=== PATIENT | female | born 1980 | race Caucasian/White ===

== ENCOUNTER 2024-01-24 13:37 | Outpatient (AMB) | payer BC, SELFPAY ==
--- NOTE | 2024-01-24 13:17 | MHC.PC.OV ---
Intake Visit Reasons: Establish Care Intake Note: New patient visit Insurance Follow Up Specialist Required: No Allergies No Known Allergies Allergy (Verified 01/24/24 13:24) [facility] Medical History (Updated 01/24/24 @ 13:23 by Gisele Blackwell CMA) Pulmonary embolism Obesity, Class I, BMI 30-34.9 Fibroid uterus Anxiety Anemia Surgical History (Updated 01/24/24 @ 13:23 by Gisele Blackwell CMA) H/O oral surgery Coding
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
[2024-01-24 13:57] VITALS: BP 110/68; PULSE 84; TEMP 36.9; O2SAT 97; BMI 31.9
== END 2024-01-24 14:43 | disposition home or self-care (01) ==
PROVIDERS: PCP Physician Assistant Medical; Visit Provider Physician Assistant Medical
DX: M54.2 Cervicalgia (principal); Z86.711 Personal history of pulmonary embolism; F41.9 Anxiety disorder, unspecified; D68.2 Hereditary deficiency of other clotting factors; M54.9 Dorsalgia, unspecified; E06.3 Autoimmune thyroiditis
CPT/HCPCS: 96127; 99204

== ENCOUNTER 2024-03-31 08:18 | Outpatient (AMB) | payer BC, SELFPAY ==
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
[2024-03-31 08:26] VITALS: BP 96/68; PULSE 83; O2SAT 98; BMI 31.5
== END 2024-03-31 09:07 | disposition home or self-care (01) ==
PROVIDERS: PCP Physician Assistant Medical; Visit Provider Physician Assistant Medical
DX: Z00.00 Encounter for general adult medical examination without abnormal findings (principal); D68.2 Hereditary deficiency of other clotting factors; M54.2 Cervicalgia; F41.9 Anxiety disorder, unspecified

== ENCOUNTER → 2024-03-31 08:18 | Outpatient (BNVA) | payer BC, SELFPAY | PROVIDERS: PCP Physician Assistant Medical; Visit Provider Physician Assistant Medical | DX: Z00.00 Encounter for general adult medical examination without abnormal findings (principal); M54.2 Cervicalgia; F41.9 Anxiety disorder, unspecified; Z79.899 Other long term (current) drug therapy | CPT/HCPCS: 96127 ==

== ENCOUNTER 2024-03-31 09:37 | Outpatient (REF) | payer BC, SELFPAY ==
[2024-03-31 11:16] LABS: Hematocrit 40.6 % (37.0-47.0); Hemoglobin 13.3 g/dl (12.0-16.0); Mean Corpuscular HGB Conc 32.8 g/dl (31.0-35.0); Mean Corpuscular Hemoglobin 30.7 pg (27.0-33.0); Mean Corpuscular Volume 93.8 fL (80.0-98.0); Mean Platelet Volume 9.9 fL (9.4-12.3); Platelet Count 341 X10*3/uL (160-400); Red Blood Count 4.33 X10*6/uL (4.20-5.50); Red Cell Distribution Width 13.4 % (11.0-16.0)
[2024-03-31 12:01] LABS: Alanine Aminotransferase 20 U/L (0-31); Albumin Level 4.1 g/dL (3.5-5.0); Alkaline Phosphatase 55 U/L (39-117); Anion Gap 11 (12-20); Aspartate Amino Transferase 21 U/L (5-31); Bilirubin Total 0.5 mg/dL (0.0-1.0); Blood Urea Nitrogen 8 mg/dL (9-16); Carbon Dioxide 24 mmol/L (22-29); Chloride 107 mmol/L (96-108); Cholesterol 197 mg/dL (<200); Estimated Glomerular Filt Rate > 60; Glucose Random 89 mg/dL (60-115); HDL Cholesterol 52 mg/dL (>40); LDL Cholesterol Calculated 126 mg/dL (<100); Potassium 4.5 mmol/L (3.3-5.1); Sodium 137 mmol/L (135-145); TSH reflex Free T4 0.76 uIU/mL (0.32-4.0); Total Protein 7.8 g/dL (6.5-8.0); Triglycerides 99 mg/dL (<150)
== END 2024-03-31 09:38 | disposition home or self-care (01) ==
LOC: HO.WFDLDS 09:37
PROVIDERS: Visit Provider Physician Assistant Medical
DX: D68.2 Hereditary deficiency of other clotting factors (principal); E66.9 Obesity, unspecified; E06.3 Autoimmune thyroiditis; Z13.6 Encounter for screening for cardiovascular disorders
CPT/HCPCS: 36415; 80053; 80061; 84443; 85027

== ENCOUNTER 2025-05-01 08:39 | Outpatient (AMB) | payer OTHER, SELFPAY ==
--- NOTE | 2025-05-01 08:41 | A.OFFPC_ITS ---
Vital Signs 05/01/25 08:52 Height 5 ft 5 in Weight 198 lb 4 oz BMI 33.0 BP 115/74 Blood Pressure Location Lt brachial Position Sitting Respiration 16 Pulse 86 Pulse Source Pulse Oximeter Temp 97.5 F Temp Source Oral Pulse Oximetry (%) 100 Oxygen Delivery Method Room Air Intake Visit Reasons: Physical / Ale Emery Pt. Intake Note: patient here for Vitaliy PRIEST patient Campaign Specialist Required: No Is last menstrual period known: No Post menopausal: No Patient : No Allergies No Known Allergies Allergy (Verified 05/01/25 09:06) Medication List - Last Reconciled 05/01/25 by Zuri Redd CNP apixaban (Eliquis) 2.5 mg PO BID lorazepam 0.5 mg PO BID PRN Tobacco use date assessed: 05/01/25 Dental Screening Dental Screen Date: 05/01/25 Did you have a dental visit in the last 12 months?: Yes Did you have a dental problem in the last 6 months where you did not have access to dental care?: No Was dental information given to patient?: Patient has dentist HPI HPI Comments History of Present Illness Details 44-year-old female presents for an exten ded physical exam. She admits to taking her medications as prescribed without adverse reactions. She is in follows [facility] C[facility]ner[facility]. 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 History of vaping nicotine , Drinks 1-2 mixed drinks occasionally. Vapes cannabis occasionally - Has been making unhealthy dietary lujan josh.Does not exercise routinely. Reports difficulty falling and staying asleep and attribute her symptoms to scrolling on her phone late at night and psychosocial stressors including work and being a mom Health maintenance - Last eye exam was 7 years ago. She vanessa l follow up with her Ophthalmology for an eye exam - Last dental visit was a few months ago - Last tetanus vaccine was more than 10 years ago; received Tdap vaccine today - Has not been vaccinated for the flu season; declines vaccination - Last pap smear test was a few months a go [facility] [place] lining strap closer. She notes hysterectomy in 09/2019 - Last mammogram 7-8 months ago with [facility]: Normal Specialists - [facility] oncology/hemat ology, lining strap closer [facility] Medical History (Updated 05/01/25 @ 09:26 by Zuri Redd CNP) Routine physical examination Upper back pain Cervicalgia History of pulmonary embolism Factor II deficiency Depression Headache Chula's disease Thyroid disease Palpitations Clot Pulmonary embolism Obesity, Class I, BMI 30-34.9 Fibroid uterus Anxiety Anemia Surgical History H/O oral surgery Family History Father HTN (hypertension) High cholesterol Clotting disorder Maternal Grandmother Lung cancer Sister FH: mental illness Social History Housing: Apartment Alcohol intake: current Patient Tobacco Use Status: Never used Tobacco e-Cigarette/Vaping Use: Never Used Second Hand Smoke Exposure: No service: No Current occupational status: employed 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 1. Little interest or pleasure in doing things: not at all 2. Feeling down, depressed, or hopeless: not at all 3. Trouble falling or staying asleep, or sleeping too much: several days 4. Feeling tired or having little energy: several days 5. Poor appetite or overeating: several days 6. Feeling bad about yourself - or that you are a failure or have let yourself or your family down: not at all 7. Trouble concentrating on things, such as reading the newspaper or watching television: not at all 8. Moving or speaking so slowly that other people could have noticed. Or the opposite - being so fidgety or restless that you have been moving around a lot more than usual: not at all 9. Thoughts that you would be better off or of hurting yourself in some way: not at all Total score: 3 Depression Screening Interpretation: Negative Depression Screening Done: Yes 64422 - PHQ-9 Billing: Yes Source: Developed by Drs. Boo Valles, Cierra Goldstein, Landon Chahal and colleagues, with an educational mil from [employer]. Thrive Questionnaire Date Thrive assessed: 05/01/25 I am a: Patient What is your living situation today?: I have a steady place to live Within the past 12 months, did the food you bought not last and you didn't have the money to get more?: Never true Within the past 12 months, did you worry whether your food would run out before you got money to buy more?: Sometimes True Do you have trouble paying for medicines?: No Do you have trouble getting transportation to medical appointments?: No Do you have trouble paying your heating and electricity bill?: No Do you have trouble taking care of your child, family member or friend?: No Do you have trouble with day-to-day activities such as bathing, preparing meals, shopping, managing finances, etc.?: No Are you currently unemployed and looking for a job?: No Are you interested in more education?: No Please select the resources that you would like help with: None Currently or been in a relationship where the following occur: I choose not to answer THRIVE Score: 1 AUDIT C Alcohol Use Questionnaire (AUDIT-C) 1. How often do you have a drink containing alcohol?: Monthly or less 2. How many drinks containing alcohol do you have on a typical day when you are drinking?: 3 or 4 3. How often do you have six or more drinks on one occasion?: Less than monthly Total Score: 3 Score Reviewed/Action Taken: Yes SAURABH-7 AMB Questionnaire SAURABH-7 Date SAURABH - 7 assessed: 05/01/25 Feeling nervous, anxious, or on edge: 1 = Several days Not being able to stop or control worryin = Several days Worrying too much about different things: 1 = Several days Trouble relaxin = Several days Being so restless that it is hard to sit still: 1 = Several days Becoming easily annoyed or irritable: 1 = Several days Feeling afraid as if something awful might happen: 1 = Several days Total SAURABH-7 score (0-4 normal; 5-9 mild; 10-14 moderate; 15-21 severe): 7 Source: Developed by Drs. Boo Valles, Cierra Goldstein, Landon Chahal and colleagues, with an educational mil from [employer]. SAURABH-7 Assessment Billing SAURABH-7 Assessment Tool: SAURABH-7 Assessment 55279 Review of Systems Const Details: Denies chills, Denies fatigue, Denies fever(s), Denies headache(s) and Denies weakness HEENT Denies change in vision, Denies dizziness, Denies headache(s), Denies hearing loss, Denies nasal congestion, Denies sinus pain, Denies sinus pressure and Denies sore throat Card Denies chest pain, Denies lightheadedness, Denies dyspnea and Denies other (palpitations) Resp Denies cough, Denies dyspnea and Denies wheezing GI Denies abdominal pain, Denies melena, Denies hematochezia, Denies change in bowel habits, Denies dyspepsia and Denies nausea Denies hematuria and Denies dysuria Musc Denies abnormal gait, Denies myalgias, Denies arthralgias, Denies numbness and Denies tingling Skin/Breast Denies rash, Denies unusual bruising and Denies wounds Neuro Denies abnormal gait, Denies dizziness, Denies headache(s), Denies memory loss, Denies numbness, Denies Sensory deficit (Neuro), Denies tingling and Denies weakness Psych Denies anxiety, Denies depression and Denies memory loss Endo Denies cold intolerance, Denies fatigue, Denies heat intolerance, Denies polydipsia and Denies polyuria Brendan/Lymph Denies easy bleeding and Denies easy bruising Aller/Immun Denies wheezing Physical exam (Primary Care) Vital Signs: Last Vital Signs Temp 97.5 F 05/01/25 08:52 Pulse 86 05/01/25 08:52 Resp 16 05/01/25 08:52 BP 115/74 05/01/25 08:52 Pulse Ox 100 05/01/25 08:52 Oxygen Delivery Method Room Air 05/01/25 08:52 BMI result Body Mass Index 33.0 Tobacco/Smoking Status: Tobacco use Status Tobacco use date assessed 05/01/25 05/01/25 08:56 Patient Tobacco Use Status Never used Tobacco 05/01/25 08:52 e-Cigarette/Vaping Use Never Used 05/01/25 08:52 PHQ-9: PHQ-9 Score PHQ-9: Total score 3 05/01/25 09:32 Depression Screening Interpretation: Negative Thrive Assessment: Date of Thrive Assessment Date Thrive assessed 05/01/25 05/01/25 08:43 Currently or been in a relationship where the following occur: I choose not to answer Const Other: General: no acute distress, well developed, alert and awake Nutritional Appearance: well nourished Orientation/consciousness: patient oriented x3 [facility] Head: Yes normocephalic and Yes atraumatic Ears: hearing grossly normal bilaterally and TM's normal bilaterally General nose exam: Normal external nose present and Normal nares present Mouth: Normal oral and palatal mucosa present and moist mucous membranes Teeth and gingiva: dentition normal Throat: Yes oropharynx normal Eyes Pupils: Equal, round and reactive pupils present and Pupil accommodation reflex normal EOM: EOMs intact bilaterally Neck Neck: Yes normal visual inspection, Yes no lymphadenopathy and Yes trachea midline Thyroid: Thyroid normal Carotids: no bruits Lymphatic: no lymphadenopathy noted Chest Chest palpation & inspection: normal inspection of the chest Resp Effort & Inspection: normal respiratory effort Auscultation: clear to auscultation bilaterally Cardio Rate: regular rate Rhythm: regular rhythm Heart sounds: S1 normal heart sound present, S2 normal heart sound present, no gallops, no murmurs and no rubs Bruits: no abdominal aortic bruits and no carotid bruits GI Palpation (GI): No Abdominal aortic bruit present, Soft to palpation, nontender, No hepatosplenomegaly present and No Rebound tenderness present Auscultation: normal bowel sounds General: Yes no CVA tenderness Back/Spine/Pelvis Back: no CVA tenderness Cervical Spine: cervical ROM normal and No Cervical spine tenderness Thoracic/Lumbar Spine: thoraco-lumbar ROM normal, No pain with thoraco-lumbar ROM, No thoracic spinal tenderness and No lumbar spinal tenderness Skin General: warm and dry. Normal skin color. Normal skin turgor Lesions: no lesions Rashes: no rashes Trauma: no lacerations or abrasions Wounds: no wounds Nails: normal Neuro General: patient oriented x3, gait normal and CN's II-XI intact bilaterally Cranial nerves: Yes Equal, round and reactive pupils present Cognition (Neuro): normal cognition Gait exam (Neuro): Normal gait present Motor exam (neuro): 5/5 motor strength present throughout Sensory Exam: No Sensory deficit (Neuro) Deep tendon reflexes (DTR's): Right patellar reflex intensity grade: 2+ and Left patellar reflex intensity grade: 2+ Extrem General: Yes normal to inspection, No edema and No calf tenderness Psych Appearance: grossly normal Affect: normal affect Attitude: cooperative Thought process: Normal thought process present Immunizations Boostrix Tdap 2.5 Lf unit-8 mcg-5 Lf/0.5 mL intramuscular syringe Performing Provider: Zuri Redd CNP Performing Location: [facility] [place] [facility] Administered by: Cherie Kwan RN on 05/01/25 09:32 Dose Route Admin Location Dispensed Lot Number Expiration Date NDC Truck Rental Service Attendant 0.5 mL IM Left Deltoid 0.5 mL [id number] 10/31/27 [id number] [employer] Total Dispensed Waste 0.5 mL 0 % VIS Given Date VIS Provided VIS Publication Date 05/01/25 Single Vaccine 20 Eligibility Eligibility Date Funding Source Not [facility] Eligible 05/01/25 Private Coding Level of Care Code Est Pt Level 4 (86379) Est Pt Prev Care 40-64y(14604) Diagnoses Routine physical examination Z00.00 Obesity, Class I, BMI 30-34.9 E66.9 Sleep disturbance G47.9 Laboratory tests ordered as part of a complete physical exam (CPE) Z00.00 Additional Codes SAURABH-7 Assessment Billing - SAURABH-7 Assessment Tool: SAURABH-7 Assessment 44075 ([id number]) PHQ-9 - 03647 - PHQ-9 Billing: Yes ([id number]) Assessment & Plan Assessment & Plan (1) Routine physical examination: Code(s): Z00.00 - Encounter for general adult medical examination without abnormal findings Category: Medical Plan: Normal physical exam of a 44-year-old female. No significant functional limitation noted. Continue current treatment regimen. Perform lab work and follow-up for telehealth visit for labs review with PCP in 2-3 weeks. Return sooner with symptoms or concerns. Verbalized understanding and agreed with the plan. (2) Obesity, Class I, BMI 30-34.9: Code(s): E66.9 - Obesity, unspecified Category: Medical Plan: Patient has been making unhealthy dietary choices. She does not exercise. She currently weighs 198 lb, BMI is 33.0. She gained 18 lb within the last year. Declines referral to senior warehouse clerk/dietitian or weight management clinic at this time and notes that she will start making healthy lifestyle choices. Healthy diet and routine exercise encouraged. Follow-up as needed. Verbalized understanding and agreed with the plan. (3) Sleep disturbance: Code(s): G47.9 - Sleep disorder, unspecified Category: Medical Plan: Reports difficulty falling and staying asleep and attribute her symptoms to scrolling on her phone late at night and psychosocial stressors including work and being a mom. Instructed on sleep hygiene including less screen time. Routine exercise encouraged. Follow-up with worsening or new symptoms. Verbalized understanding and agreed with the plan. (4) Laboratory tests ordered as part of a complete physical exam (CPE): Code(s): Z00.00 - Encounter for general adult medical examination without abnormal findings Category: Medical Plan: Fasting labs ordered as part of a complete physical exam. Advised to fast for at least 10 hours before getting labs drawn. May drink water Verbalized understanding and agreed with treatment plan. Orders: Orders Complete Blood Count Auto Diff Today Z00.00 - Encounter for general adult medical examination without abnormal findings Lipid Panel Today Z00.00 - Encounter for general adult medical examination without abnormal findings TDaP Immunization Today Z23 - Encounter for immunization Comprehensive [place]. Panel Fast Today Z00.00 - Encounter for general adult medical examination without abnormal findings Microalbumin, Random (w Creat) Today Z00.00 - Encounter for general adult medical examination without abnormal findings TSH reflex Free T4 Today Z00.00 - Encounter for general adult medical examination without abnormal findings UA CC w/rflx Micro + Cult Today Z00.00 - Encounter for general adult medical examination without abnormal findings Vitamin D 25-OH Total Today Z00.00 - Encounter for general adult medical examination without abnormal findings
[2025-05-01 08:52] VITALS: BP 115/74; PULSE 86; RESP 16; TEMP 36.4; O2SAT 100; BMI 33.0
== END 2025-05-01 09:30 | disposition home or self-care (01) ==
PROVIDERS: PCP Physician Assistant Medical; Visit Provider Nurse Practitioner Family
DX: Z00.00 Encounter for general adult medical examination without abnormal findings (principal); E66.9 Obesity, unspecified; Z68.33 Body mass index [BMI] 33.0-33.9, adult; G47.00 Insomnia, unspecified; Z23 Encounter for immunization

== ENCOUNTER → 2025-05-01 08:39 | Outpatient (BNVA) | payer OTHER, SELFPAY | PROVIDERS: PCP Physician Assistant Medical; Visit Provider Nurse Practitioner Family | DX: Z00.00 Encounter for general adult medical examination without abnormal findings (principal); Z23 Encounter for immunization; E66.9 Obesity, unspecified; G47.9 Sleep disorder, unspecified; Z68.33 Body mass index [BMI] 33.0-33.9, adult | CPT/HCPCS: 90471; 90715; 96127; 99396 ==